=== PATIENT | female | born 1980 | race Hispanic/Latino ===

== ENCOUNTER → 2024-06-26 | Day surgery (SDC) | payer OTHER ==
[~2024-06-26] MED LIST: FENTANYL CITRATE/PF 100MCG/2 ML INJ ONE; LIDOCAINE HCL 2% LOCAL INJ 5 ML SDV VIAL INJ ONE; METOCLOPRAMIDE HCL 10 MG/2ML VIAL ONE; MOTRIN200 MG PO; PROPOFOL IV EMULSION 10 MG/ML 20 ML VIAL ONE; PROTONIX20 MG PO; VITAMIN D31250 MCG PEG
[2024-06-26] MEDS: LACTATED RINGER'S 1,000 ML ONE (09:35)
[2024-06-26 10:46] VITALS: TEMP 97.1
[2024-06-26 11:15] VITALS: BP 103/63; PULSE 74; RESP 16; O2SAT 100
== END | disposition home or self-care (01) ==
LOC: OR 08:40
PROVIDERS: ATTEND Internal Medicine Gastroenterology
DX: K29.70 Gastritis, unspecified, without bleeding (principal); K20.90 Esophagitis, unspecified without bleeding; K21.9 Gastro-esophageal reflux disease without esophagitis; K59.09 Other constipation; K80.10 Calculus of gallbladder with chronic cholecystitis without obstruction; Z79.1 Long term (current) use of non-steroidal anti-inflammatories (NSAID)
CPT/HCPCS: 43239; 81025; J2003; J2470; J2704; J2765; J3010; J7121